=== PATIENT | male | born 1990 | race Caucasian/White ===

== ENCOUNTER 2019-09-22 10:58 | Day surgery (SDC) | payer OTHER ==
[~2019-09-22] VITALS: Ht 175.3 cm; Wt 77.1 kg
[~2019-09-22 10:58] MED LIST: CVS DAILY GUM200 MCG PO
[2019-09-22 13:21] VITALS: BP 136/86
[2019-09-22] MEDS ORDERED: NORCO 5-325 TA1 EAC1 PO (14:19)
[2019-09-22 15:49] VITALS: BP 136/86
--- NOTE | 2019-09-26 16:06 | PATH ---
[facility] [address] [place] [address] PATHOLOGY RPT PROCEDURE Name: MICAELA SANCHES Room #: DEP [facility].#: [id number] Admission: 09/22/19 Date of : 89 Discharge: 09/22/19 Report #: [id number] Path Case #: [id number] [facility] Accession Number: [id number] . 01 Material submitted: . hernia - HERNIA SAC . 01 Clinical history: . Unspecified inguinal hernia without obstruction or gangrene . 02 Diagnosis: Fibrovascular connective tissue, hernia sac, repair: - Congested tissue along with reactive/reparative changes, compatible with a hernia sac. (IUV:carpet winder; 09/26/2019) MBR 09/26/2019 1317 Local . 02 Electronically signed: . Olivia Hillman MD, Pathologist NPI- [id number] . 01 Gross description: . The specimen is received in formalin labeled "Micaela Sanches, hernia sac". The specimen source is not listed on the container. The procedure is listed on the requisition as "hernia repair, inguinal unilateral". Received is an elongate, wrinkled segment of pale pierre to dusky vásquez-pierre fibromembranous tissue with scant attached yellow lobulated adipose tissue measuring 12.2 x 4.0 x 0.4 cm in greatest dimensions. Portions of the fibromembranous tissue appear grossly thickened and pale pierre in appearance. Sectioning reveals firm, pale pierre cut surfaces through the thickened areas, with pale pierre to dusky vásquez-pierre cut surfaces through the remainder of the specimen. Inserting Machine Operator tissue is submitted in cassette A1. (DAC; 09/23/2019) XDC/XDC 09/26/2019 1316 Local . 02 Pathologist provided ICD-10: K40.90 . 02 CPT . 283652 Specimen Comment: A courtesy copy of this report has been sent to [phone] Specimen Comment: [phone] Specimen Comment: Report sent to / DR MAXWELL Performed at: [address] [place] [address] PATHOLOGY RPT PROCEDURE Name: MICAELA SANCHES Room #: DEP [facility] Bhavna#: [id number] Admission: 09/22/19 Date of : 89 Discharge: 09/22/19 Report #: [id number] Path Case #: [id number] [id number] [facility] [address], [place], [place] [id number] MD Jesse Robles MD Phone: [phone] Performed at: [address] [id number] MD Olivai Hillman MD Phone: [phone]
--- NOTE | 2019-09-28 13:53 | O ---
[facility] [place] [address] OPERATIVE REPORT Name: MICAELA BOCANEGRA Room #: DEP [facility].#: [id number] Admission: 09/22/19 Attend Phys: Miguel Mora MD Discharge: 09/22/19 Date of : 89 Report #: [id number] THIS REPORT FOR: //name// CC: Miguel Mora DATE OF SERVICE: 09/22/2019 PATIENT OF: Dr. Miguel Mora and Dr. Miguel Jones. PREOPERATIVE DIAGNOSIS: Right inguinal scrotal incarcerated hernia. POSTOPERATIVE DIAGNOSIS: Right inguinal scrotal incarcerated hernia. PROCEDURE: Repair of a right incarcerated inguinal scrotal hernia with Prolene hernia system mesh. SURGEON: Miguel Mora MD ANESTHESIA: Local IV sedation. DESCRIPTION OF PROCEDURE: The patient was brought to the operating room and placed on operative table in a supine position. Sequential compression devices were in place for DVT prophylaxis. There was no indication for preoperative antibiotics. The patient underwent IV sedation and the right inguinal area was then prepped and draped in a sterile fashion. Skin and subcutaneous tissue were then infiltrated with 0.5% Marcaine and 1% Xylocaine in a 1:1 mixture. Right inguinal skin incision was then performed using a #10 scalpel blade. Hemostasis obtained using electrocautery as well as clamps and 2-0 chromic ties. Dissection was carried down through subcutaneous tissue, the external oblique fascia, which was then incised with a knife and opened with the Metzenbaum scissors. An incarcerated indirect inguinal hernia sac was dissected free along with the cord and held in place with a Mike drain. Cremasteric muscle fibers were then split in the direction of their fibers using clamp and electrocautery. A large indirect inguinal hernia sac was identified and dissected free. While dissecting the indirect hernia sac free, the incarcerated contents were then reduced back into the abdomen. I dissected the hernia sac down to the internal ring and the hernia sac was opened and contents were reduced back into the abdomen. The hernia sac was then twisted and then suture ligated at the base of the hernia sac. Sac was excised and sent as specimen to pathology. The floor was inspected and found to be intact. An extended Prolene hernia system mesh was then inserted through the internal ring and then overlay patch was then deployed into the preperitoneal space. The connector was left in the internal ring and the overlay patch was then deployed into the inguinal canal. The mesh was secured at the pubic tubercle superiorly at the connector using simple [facility] [address] [address] OPERATIVE REPORT Name: MICAELA BOCANEGRA Room #: DEP [facility] Bhavna#: [id number] Admission: 09/22/19 Attend Phys: Miguel Mora MD Discharge: 09/22/19 Date of : 89 Report #: [id number] interrupted 2-0 Vicryl sutures. The mesh was split and wrapped around the cord, secured to the inguinal ligament with simple interrupted 2-0 Vicryl suture. The cord was then returned to the canal intact. The external oblique fascia was then closed using running 2-0 Vicryl suture. Fide's fascia was then reapproximated using 3 simple interrupted 2-0 chromic sutures and the skin then closed with a running 4-0 subcuticular Vicryl stitch. The wound was then dressed with Mastisol, 0.5-inch Steri-Strips cut in half, Telfa, 4 x 4 gauze, sponge and tape. The patient was then awakened from the IV sedation, taken to recovery room in good condition. Estimated blood loss was approximately 10 mL and the patient tolerated the procedure well. All sponge, lap, and instrument counts correct x 2. <ELECTRONICALLY SIGNED> By: Miguel Mora MD 09/28/19 1353 [id number] Miguel Mora MD /nt
== END 2019-09-22 16:30 | disposition home or self-care (01) ==
LOC: OR 10:58 → TBA 10:59 → OR 15:19
DX: K40.30 Unilateral inguinal hernia, with obstruction, without gangrene, not specified as recurrent (principal); Z98.890 Other specified postprocedural states; Z79.899 Other long term (current) drug therapy; Z88.2 Allergy status to sulfonamides
CPT/HCPCS: 50010; 50101; 50386; 50417; 54111; 56524; 56525; 56526; 56528; 62110; 62850; 70005